=== PATIENT | female | born 1980 | race Caucasian/White ===

== ENCOUNTER 2019-11-17 02:59 | Emergency (ER) | payer SELFPAY ==
--- NOTE | 2019-11-17 03:17 | EDM.PDOC ---
ED HPI GENERAL MEDICAL PROBLEM - General Chief Complaint: Respiratory Problem Stated Complaint: SOB Time Seen by Provider: 11/17/19 03:08 Source of Information: Reports: Patient History Limitations: Reports: No Limitations - History of Present Illness INITIAL COMMENTS - FREE TEXT/NARRATIVE: Patient is a 39-year-old female who is complaining of having a nonproductive cough that is been going on for several months. Symptoms started when she was still living in [place] this last August. Cough is occasionally productive of a brownish bloody sputum. She is states occasionally she is having fever and shaking chills though none recently. Patient is coughing so severely that is keeping her up at night. She is a cigarette smoker. She has not traveled out of state for the past 3 months. She is not around anybody who is been traveling recently. She denies any nausea or vomiting or diarrhea. She has no dysuria or hematuria. She has no swelling to her ankles or calfs. Patient has had bronchitis previously. Onset: Unknown/Unsure Duration: Waxing/Waning Location: Reports: Chest Quality: Reports: Ache Severity: Moderate Worsens with: Reports: Breathing Associated Symptoms: Reports: cough w sputum, Fever/Chills. Denies: Nausea/ Vomiting, Shortness of Breath throat/chest Pain Score (Numeric/FACES): 6 - Related Data Allergies Allergy/AdvReac Type Severity Reaction Status Date / Time amoxicillin Allergy Other Verified 11/17/19 03:10 cefaclor [From Ceclor] Allergy Other Verified 11/17/19 03:10 Penicillins Allergy Other Verified 11/17/19 03:10 prochlorperazine Allergy Itching Verified 11/17/19 03:10 [From Compazine] Home Meds: Home Meds . [No Known Home Meds] 11/17/19 [History] ED ROS GENERAL - Review of Systems Review Of Systems: Comprehensive ROS is negative, except as noted in HPI. ED EXAM, GENERAL - Physical Exam Exam: See Below Exam Limited By: No Limitations General Appearance: Alert, No Apparent Distress Head: Atraumatic Neck: Normal Inspection, Supple Respiratory/Chest: No Respiratory Distress, Lungs Clear, Normal Breath Sounds, No Accessory Muscle Use. No: Respiratory Distress Cardiovascular: Regular Rate, Rhythm, No Edema Extremities: Normal Inspection, No Pedal Edema Neurological: Alert, Oriented Psychiatric: Normal Affect Skin Exam: Warm, Dry Course - Vital Signs Text/Narrative:: I have started the patient on prednisone and Zithromax. I will give her a prescription for Phenergan with codeine. I am starting her on albuterol inhaler. Patient has agreed to stop smoking cigarettes. She will return to emergency department symptoms are worse. Follow-up with her PCP if not improving. I do not feel that she is at risk for having coronavirus. Last Recorded V/S: Last Vital Signs Temp 36.5 C 11/17/19 03:10 Pulse 98 11/17/19 03:10 Resp 18 11/17/19 03:10 BP 149/100 H 11/17/19 03:10 Pulse Ox 99 11/17/19 03:10 Departure - Departure Time of Disposition: 03:38 Disposition: Home, Self-Care 01 Condition: Good Clinical Impression: Acute bronchitis - Discharge Information Instructions: Acute Bronchitis, Adult, [id number] Forms: ED Department Discharge Additional Instructions: The following information is given to patients seen in the emergency department who are being discharged to home. This information is to outline your options for follow-up care. We provide all patients seen in our emergency department with a follow-up referral. The need for follow-up, as well as the timing and circumstances, are variable depending upon the specifics of your emergency department visit. If you don't have a primary care physician on staff, we will provide you with a referral. We always advise you to contact your personal physician following an emergency department visit to inform them of the circumstance of the visit and for follow-up with them and/or the need for any referrals to a consulting specialist. The emergency department will also refer you to a specialist when appropriate. This referral assures that you have the opportunity for follow-up care with a specialist. All of these measure are taken in an effort to provide you with optimal care, which includes your follow-up. Under all circumstances we always encourage you to contact your private physician who remains a resource for coordinating your care. When calling for follow-up care, please make the office aware that this follow-up is from your recent emergency room visit. If for any reason you are refused follow-up, please contact the [facility] Emergency Department at and asked to speak to the emergency department charge nurse. Care Plan Goals: Quit smoking cigarettes. Medicines as prescribed. Return to ER if worse. Follow-up with PCP if not improving. Sepsis Event Note - Focused Exam Vital Signs: Vital Signs Temp Pulse Resp BP Pulse Ox 11/17/19 03:10 36.5 C 98 18 149/100 H 99 Date Exam was Performed: 11/17/19 Time Exam was Performed: 03:31
[2019-11-17] MEDS ORDERED: Albuterol 8 GM Inhaler INH ONE (03:30)
== END 2019-11-17 03:51 | disposition home or self-care (01) ==
LOC: MW.ED 02:59
DX: J20.9 Acute bronchitis, unspecified (principal); Z88.1 Allergy status to other antibiotic agents; Z88.0 Allergy status to penicillin; Z91.048 Other nonmedicinal substance allergy status
CPT/HCPCS: 99284; A9270; 99283

== ENCOUNTER 2020-09-13 20:33 | Emergency (ER) | payer SELFPAY ==
[2020-09-13] MEDS ORDERED: Ondansetron 4 MG Tab.DIS PO ONE (20:54)
[2020-09-13] MEDS ORDERED: Sodium Chloride 0.9% 10 ML Syringe FLUSH PRN (20:54)
[2020-09-13] MEDS ORDERED: Sodium Chloride 0.9% 2.5 ML Syringe FLUSH PRN (20:54)
[2020-09-13] MEDS ORDERED: MVI, Adult with Vitamin K 10 ML, Thiamine 200 MG, Chromium/Copper/Mang/Selen/Zn 1 ML in... IV SCH ×4 (21:00)
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
[2020-09-13] MEDS ORDERED: MVI, Adult with Vitamin K 10 ML, Thiamine 100 MG, Folic Acid 1 MG in Sodium Chloride 0.... IV ONE ×4 (21:33)
--- NOTE | 2020-09-13 21:36 | CR ---
INDICATION: Pain of the chest wall with contusion in the right upper lateral and posterior chest. COMPARISON: None available. FINDINGS: A portable erect film of the chest is obtained at 2115 hours The lungs are clear. No focal or diffuse infiltrates are present. The heart is normal in size. The mediastinum is normal in appearance. The osseous structures are normal in appearance for the patient`s age. IMPRESSION: Normal portable chest. Dictated by Russell Cm MD @ Sep 13 2020 9:34PM Signed by Dr. Russell Cm @ Sep 13 2020 9:35PM
[2020-09-13 22:03] LABS: HEMOGLOBIN A1C 4.8 %
[2020-09-13 22:26] LABS: BLOOD UREA NITROGEN,BUN 9 mg/dL (7.0-18.0); CARBON DIOXIDE,CO2 16.2 mmol/L (21.0-32.0); CHLORIDE,CL 102 mmol/L (98-107); GLUCOSE RANDOM 51 mg/dL (74-106); LIPASE 164 U/L (73-393); POTASSIUM,K 3.8 mmol/L (3.5-5.1); SODIUM,NA 143 mmol/L (136-145)
[2020-09-14] MEDS ORDERED: Ondansetron 4 MG/2 ML SDV IVPUSH ONE (00:07)
[2020-09-14] MEDS ORDERED: Pantoprazole 40 MG in Sodium Chloride 0.9% 10 ML IV ONE (00:46)
== END 2020-09-14 01:45 | disposition home or self-care (01) ==
LOC: MW.ED 20:33
DX: S20.211A Contusion of right front wall of thorax, initial encounter (principal); F10.129 Alcohol abuse with intoxication, unspecified; E16.2 Hypoglycemia, unspecified; J45.909 Unspecified asthma, uncomplicated; Z88.1 Allergy status to other antibiotic agents; Z88.0 Allergy status to penicillin; Z88.8 Allergy status to other drugs, medicaments and biological substances; Y90.8 Blood alcohol level of 240 mg/100 ml or more; W19.XXXA Unspecified fall, initial encounter
CPT/HCPCS: 36415; 71045; 80053; 80179; 82962; 83036; 83690; 84703; 85025; 96365; 96366; 96375; 99285; A9270; C9113; J2405; J3411; J7030; 99283

== ENCOUNTER 2020-09-21 07:06 | Emergency (ER) | payer SELFPAY ==
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
== END 2020-09-21 07:45 ==
LOC: MW.ED 07:06
DX: F10.120 Alcohol abuse with intoxication, uncomplicated (principal); J45.909 Unspecified asthma, uncomplicated; Z88.0 Allergy status to penicillin
CPT/HCPCS: 99282; 99283

== ENCOUNTER 2021-01-29 21:33 | Emergency (ER) | payer SELFPAY ==
[2021-01-29] MEDS ORDERED: Sodium Chloride 0.9% 2.5 ML Syringe FLUSH PRN (22:07)
[2021-01-29] MEDS ORDERED: Sodium Chloride 0.9% 10 ML Syringe FLUSH PRN (22:07)
[2021-01-29] MEDS ORDERED: Ketorolac 15 MG/ML SDV IVPUSH ONE (22:07)
[2021-01-29] MEDS ORDERED: Ondansetron 4 MG/2 ML SDV IVPUSH ONE (22:07)
[2021-01-29] MEDS ORDERED: Sodium Chloride 0.9% 1,000 ML IV ONE (22:07)
[2021-01-29 22:45] LABS: BLOOD UREA NITROGEN,BUN 7 mg/dL (7.0-18.0); CARBON DIOXIDE,CO2 22.6 mmol/L (21.0-32.0); CHLORIDE,CL 99 mmol/L (98-107); GLUCOSE RANDOM 84 mg/dL (74-106); POTASSIUM,K 3.5 mmol/L (3.5-5.1); SODIUM,NA 141 mmol/L (136-145)
--- NOTE | 2021-01-29 23:35 | CR ---
For Patients: As a result of the Century Cures Act, medical imaging exams and procedure reports are released immediately into your electronic medical record. You may view this report before your referring provider. If you have questions, please contact your health care provider. Indication: Cough Technique: Chest 2 views Comparison: Chest x-ray 09/13/2020 Findings/Impression: Cardiovascular and mediastinum: Heart size and vasculature are normal in caliber and appearance. Mediastinum is within normal limits. Lungs and pleural spaces: Lungs are clear. No sign of infiltrate or mass. No sign of pleural effusion. No pneumothorax. Bones and soft tissues: No significant findings. Dictated by Klaus Anand MD @ 01/29/2021 11:33:[address] Klaus Anand @ Jan 29 2021 11:33PM
[2021-01-30] MEDS ORDERED: HYDROmorphone 1 MG/ML Syringe IVPUSH ONE (01:24)
[2021-01-30] MEDS ORDERED: Ondansetron 4 MG/2 ML SDV IVPUSH ONE (01:25)
--- NOTE | 2021-01-30 01:33 | US ---
INDICATION: Abnormal liver enzymes. LIMITED ABDOMEN ULTRASOUND Technique: Multiple sonographic images were performed over the right upper quadrant. Findings: The liver has diffusely increased echogenicity consistent with fatty infiltration. Liver size is in the upper range of normal. The gallbladder shows no stones, wall thickening, or pericholecystic fluid. There was a positive sonographic Tolentino`s sign, according to the technologist. No intrahepatic biliary dilatation is seen and the common bile duct is normal in caliber, measuring 4 mm in diameter. The pancreas is poorly visualized. The visualized portions of the right kidney are unremarkable. IMPRESSION: 1. Positive sonographic Tolentino`s sign without other sonographic evidence of cholecystitis. No cholelithiasis is seen. 2. Fatty infiltration of the liver. MICHELINE BAUTISTA MD [facility] Dictated by Beto Bautista MD @ 01/30/2021 1:32:22 AM Dictated by: Beto Bautista MD @ 01/30/2021 01:32:42 (Electronically Signed)
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
--- NOTE | 2021-01-31 03:38 | PCM.EKG ---
#1 Interpretation EKG Interpretation Comments: EKG: As interpreted by ER physician: Alfie: Nonspecific ST-T wave abnormalities Normal axis No evidence of ST elevation RI Normal sinus rhythm heart rate of 82
== END 2021-01-30 03:06 | disposition home or self-care (01) ==
LOC: MW.ED 21:33
DX: R10.11 Right upper quadrant pain (principal); R07.9 Chest pain, unspecified; R79.89 Other specified abnormal findings of blood chemistry; E11.9 Type 2 diabetes mellitus without complications; I10 Essential (primary) hypertension; J45.909 Unspecified asthma, uncomplicated; Z88.0 Allergy status to penicillin; Z88.1 Allergy status to other antibiotic agents; Z88.8 Allergy status to other drugs, medicaments and biological substances; Z79.899 Other long term (current) drug therapy
CPT/HCPCS: 36415; 71046; 76705; 80053; 80074; 81001; 81025; 83690; 83880; 84484; 85025; 93005; 96374; 96375; 96376; 99285; J1170; J1885; J2405; J7030

== ENCOUNTER 2021-08-27 11:58 | Emergency (ER) | payer SELFPAY ==
[2021-08-27] MEDS ORDERED: Sodium Chloride 0.9% 1,000 ML IV ONE (13:58)
[2021-08-27] MEDS ORDERED: Ondansetron 4 MG/2 ML SDV IVPUSH ONE ×2 (13:58→16:40)
[2021-08-27] MEDS ORDERED: fentaNYL 50 MCG/ML SDV IVPUSH ONE ×2 (13:59→16:40)
[2021-08-27 14:41] LABS: CORONAVIRUS COVID-19 NAA NEGATIVE (NEGATIVE); INFLUENZA A NAA NEGATIVE (NEGATIVE); INFLUENZA B NAA NEGATIVE (NEGATIVE)
[2021-08-27 15:11] LABS: BLOOD UREA NITROGEN,BUN 7 mg/dL (7.0-18.0); CARBON DIOXIDE,CO2 26.9 mmol/L (21.0-32.0); CHLORIDE,CL 96 mmol/L (98-107); GLUCOSE RANDOM 70 mg/dL (74-106); LIPASE 100 U/L (73-393); POTASSIUM,K 3.7 mmol/L (3.5-5.1); SODIUM,NA 139 mmol/L (136-145)
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
--- NOTE | 2021-08-27 15:50 | CT ---
INDICATION: Abdominal pain. TECHNIQUE: CT abdomen and pelvis without contrast. COMPARISON: None. FINDINGS: Lower chest: Unremarkable. Liver: Diffuse fatty infiltration. Gallbladder and bile ducts: High attenuation material within the gallbladder which is normal in caliber. No biliary dilatation. Pancreas: Unremarkable. No mass or inflammation. Spleen: Normal in size. No masses. Adrenal glands: Normal in size. No nodules. Kidneys: Normal in size. No suspicious masses, stones, or hydronephrosis. GI tract: Unremarkable. Normal in caliber. No sign of mass or inflammation. Normal appendix. Vasculature: Unremarkable. Lymph nodes: No lymphadenopathy. Abdominal wall/Omentum/Peritoneum: Unremarkable. No sign of mass or infiltration. No free air or significant free fluid. Pelvis: Unremarkable. No pelvic masses. Bones: Unremarkable for age. IMPRESSION: No acute or specific finding to explain abdominal pain. Please note that all CT scans at this facility use dose modulation, iterative reconstruction, and/or weight-based dosing when appropriate to reduce radiation dose to as low as reasonably achievable. Dictated by Daniele Umanzor MD @ 08/27/2021 3:49:10 PM (Electronically Signed)
== END 2021-08-27 17:22 | disposition home or self-care (01) ==
LOC: MW.ED 11:58
DX: K70.10 Alcoholic hepatitis without ascites (principal); E56.9 Vitamin deficiency, unspecified; Z88.0 Allergy status to penicillin; Z88.1 Allergy status to other antibiotic agents; Z88.8 Allergy status to other drugs, medicaments and biological substances; J45.909 Unspecified asthma, uncomplicated; Z72.0 Tobacco use; Z20.822 Contact with and (suspected) exposure to COVID-19
CPT/HCPCS: 0240U; 36415; 74176; 80053; 81001; 81025; 82150; 83690; 84443; 85025; 96374; 96375; 96376; 99284; J2405; J3010; J7030

== ENCOUNTER 2021-10-03 16:09 | Observation (INO) | payer MEDICAID ==
[2021-10-03] MEDS ORDERED: Ondansetron 4 MG/2 ML SDV IVPUSH ONE (16:39)
[2021-10-03] MEDS ORDERED: Sodium Chloride 0.9% 1,000 ML IV ONE (16:39)
[2021-10-03 17:40] LABS: BLOOD UREA NITROGEN,BUN 14 mg/dL (7.0-18.0); CARBON DIOXIDE,CO2 28.4 mmol/L (21.0-32.0); CHLORIDE,CL 79 mmol/L (98-107); GLUCOSE RANDOM 74 mg/dL (74-106); LIPASE 430 U/L (73-393); SODIUM,NA 129 mmol/L (136-145)
[2021-10-03 17:46] LABS: POTASSIUM,K 2.1 mmol/L (3.5-5.1)
[2021-10-03] MEDS ORDERED: Magnesium Sulfate/Water 2 GM in Premix Bag 1 BAG IV ONE (17:47)
[2021-10-03] MEDS ORDERED: Potassium Chloride Riders 40 MEQ in Premix Bag 1 BAG IV ONE (17:47)
[2021-10-03] MEDS ORDERED: Iopamidol 612 MG/ML 100 ML Bottle IVPUSH ONE (18:02)
[2021-10-03] MEDS ORDERED: Morphine 4 MG/ML VIAL IVPUSH ONE (18:22)
[2021-10-03 19:09] LABS: CORONAVIRUS COVID-19 NAA NEGATIVE (NEGATIVE); INFLUENZA A NAA NEGATIVE (NEGATIVE); INFLUENZA B NAA NEGATIVE (NEGATIVE)
[2021-10-03] MEDS ORDERED: Morphine 2 MG/ML SYRINGE IVPUSH ONE (20:11)
[2021-10-03] MEDS ORDERED: Ondansetron 4 MG/2 ML SDV IVPUSH PRN (21:37)
[2021-10-03] MEDS ORDERED: Morphine 2 MG/ML SYRINGE IVPUSH PRN (21:38)
[2021-10-03] MEDS ORDERED: Pantoprazole 40 MG in Sodium Chloride 0.9% 10 ML IVPUSH SCH (21:45)
[2021-10-03] MEDS ORDERED: Pantoprazole 40 MG in Sodium Chloride 0.9% 10 ML IVPUSH ONE (21:45)
[2021-10-04] MEDS ORDERED: POTASSIUM CHLORIDE IV ONE ×2
[2021-10-04] MEDS ORDERED: LACTATED RINGERS IV SCH ×2
[2021-10-04] MEDS ORDERED: LACTATED RINGERS IV ONE ×2
[2021-10-04] MEDS ORDERED: POTASSIUM CHLORIDE IV SCH ×2
[2021-10-04] MEDS ORDERED: Potassium Chloride 10% 20 MEQ/15 ML Soln 30 ML UD Cup PO ONE (01:56)
[2021-10-04] MEDS: Morphine 2 MG/ML SYRINGE IVPUSH PRN ×5 (02:06→18:05)
[2021-10-04] MEDS: Lactated Ringers 1,000 ML IV SCH ×2 (04:18→19:32)
[2021-10-04 07:24] LABS: BLOOD UREA NITROGEN,BUN 8 mg/dL (7.0-18.0); CARBON DIOXIDE,CO2 30.2 mmol/L (21.0-32.0); CHLORIDE,CL 91 mmol/L (98-107); GLUCOSE RANDOM 87 mg/dL (74-106); POTASSIUM,K 3.1 mmol/L (3.5-5.1); SODIUM,NA 133 mmol/L (136-145)
[2021-10-04] MEDS ORDERED: Potassium Chloride 20 MEQ Tab.ER PO ONE (08:10)
[2021-10-04] MEDS ORDERED: Potassium Phosphates 30 MMOLE in Sodium Chloride 0.9% 500 ML IV ONE (08:30)
[2021-10-04] MEDS: Pantoprazole 40 MG in Sodium Chloride 0.9% 10 ML IVPUSH SCH (08:52)
[2021-10-04] MEDS: Thiamine 100 MG Tab PO SCH (10:56)
[2021-10-04] MEDS: Folic Acid 1 MG Tab PO SCH (10:56)
[2021-10-04] MEDS: Gabapentin 100 MG Cap PO SCH ×2 (10:56→21:12)
[2021-10-04] MEDS: oxyCODONE 5 MG Tab PO PRN ×2 (16:24→21:11)
[2021-10-05] MEDS: Lactated Ringers 1,000 ML IV SCH ×2 (02:36→10:37)
[2021-10-05] MEDS: oxyCODONE 5 MG Tab PO PRN ×5 (02:37→21:22)
[2021-10-05] MEDS: Morphine 2 MG/ML SYRINGE IVPUSH PRN ×2 (06:29→10:36)
[2021-10-05] MEDS: Folic Acid 1 MG Tab PO SCH (08:10)
[2021-10-05] MEDS: Pantoprazole 40 MG in Sodium Chloride 0.9% 10 ML IVPUSH SCH (08:10)
[2021-10-05] MEDS: Thiamine 100 MG Tab PO SCH (08:10)
[2021-10-05] MEDS: Gabapentin 100 MG Cap PO SCH ×3 (08:10→21:22)
[2021-10-05 09:55] LABS: BLOOD UREA NITROGEN,BUN 4 mg/dL (7.0-18.0); CARBON DIOXIDE,CO2 30.4 mmol/L (21.0-32.0); CHLORIDE,CL 96 mmol/L (98-107); GLUCOSE RANDOM 94 mg/dL (74-106); POTASSIUM,K 3.3 mmol/L (3.5-5.1); SODIUM,NA 137 mmol/L (136-145)
[2021-10-05] MEDS ORDERED: Potassium Chloride 20 MEQ Tab.ER PO ONE (12:00)
[2021-10-05] MEDS ORDERED: Magnesium Oxide 400 MG Tab PO ONE (12:00)
[2021-10-05] MEDS ORDERED: Gabapentin 100 MG Cap PO SCH (21:00)
[2021-10-06] MEDS: oxyCODONE 5 MG Tab PO PRN ×6 (01:36→23:16)
[2021-10-06 06:39] LABS: BLOOD UREA NITROGEN,BUN 2 mg/dL (7.0-18.0); CARBON DIOXIDE,CO2 28.1 mmol/L (21.0-32.0); CHLORIDE,CL 97 mmol/L (98-107); GLUCOSE RANDOM 94 mg/dL (74-106); POTASSIUM,K 3.5 mmol/L (3.5-5.1); SODIUM,NA 135 mmol/L (136-145)
[2021-10-06] MEDS: Folic Acid 1 MG Tab PO SCH (08:51)
[2021-10-06] MEDS: Gabapentin 100 MG Cap PO SCH ×2 (08:51→20:03)
[2021-10-06] MEDS: Thiamine 100 MG Tab PO SCH (08:51)
[2021-10-06] MEDS: Pantoprazole 40 MG in Sodium Chloride 0.9% 10 ML IVPUSH SCH (08:52)
[2021-10-06] MEDS ORDERED: Magnesium Oxide 400 MG Tab PO ONE (10:48)
[2021-10-06] MEDS ORDERED: Polyethylene Glycol 3350 Powder 17 GM Packet PO ONE (15:57)
[2021-10-07] MEDS: oxyCODONE 5 MG Tab PO PRN ×2 (04:04→08:20)
[2021-10-07 07:12] LABS: BLOOD UREA NITROGEN,BUN 1 mg/dL (7.0-18.0); CARBON DIOXIDE,CO2 26.9 mmol/L (21.0-32.0); CHLORIDE,CL 98 mmol/L (98-107); GLUCOSE RANDOM 94 mg/dL (74-106); POTASSIUM,K 3.3 mmol/L (3.5-5.1); SODIUM,NA 137 mmol/L (136-145)
[2021-10-07] MEDS ORDERED: Potassium Chloride 20 MEQ Tab.ER PO ONE (08:00)
[2021-10-07] MEDS ORDERED: Magnesium Sulfate/Water 2 GM in Premix Bag 1 BAG IV ONE (08:00)
[2021-10-07] MEDS: Pantoprazole 40 MG in Sodium Chloride 0.9% 10 ML IVPUSH SCH (08:11)
[2021-10-07] MEDS: Thiamine 100 MG Tab PO SCH (08:14)
[2021-10-07] MEDS: Folic Acid 1 MG Tab PO SCH (08:14)
[2021-10-07] MEDS: Gabapentin 100 MG Cap PO SCH (08:14)
[2021-10-07] MEDS ORDERED: Potassium Chloride 20 MEQ Tab.ER ONE (08:24)
== END 2021-10-07 14:00 | disposition home or self-care (01) ==
LOC: MW.ED 16:09 → MW.MS 19:33 → INTOOBSV 10-05 12:00 → OBSVTOIN 10-05 12:00
PROVIDERS: ADMIT Student in an Organized Health Care Education/Training Program; ATTEND Student in an Organized Health Care Education/Training Program
DX: E87.1 Hypo-osmolality and hyponatremia (principal); E83.42 Hypomagnesemia; K70.10 Alcoholic hepatitis without ascites; E87.6 Hypokalemia; G62.9 Polyneuropathy, unspecified; F41.9 Anxiety disorder, unspecified; F32.A Depression, unspecified; F10.10 Alcohol abuse, uncomplicated; J45.909 Unspecified asthma, uncomplicated; F17.210 Nicotine dependence, cigarettes, uncomplicated; E83.39 Other disorders of phosphorus metabolism; Z20.822 Contact with and (suspected) exposure to COVID-19; Z88.1 Allergy status to other antibiotic agents; Z88.8 Allergy status to other drugs, medicaments and biological substances; Z88.0 Allergy status to penicillin; Z79.899 Other long term (current) drug therapy
CPT/HCPCS: 0240U; 36415; 70450; 74177; 80048; 80053; 80307; 82525; 82607; 82746; 83605; 83690; 83735; 84075; 84100; 84450; 84460; 84703; 85025; 85610; 85730; 86140; 93005; 96365; 96366; 96367; 96368; 96375; 96376; 99285; A9270; C9113; G0378; J2270; J2405; J3475; J3480; J7030; J7040; J7120; Q9967; 93010; 99282

== ENCOUNTER 2021-10-11 14:32 | Emergency (ER) | payer MEDICAID ==
[2021-10-11] MEDS ORDERED: Sodium Chloride 0.9% 1,000 ML IV ONE (14:42)
[2021-10-11] MEDS ORDERED: Morphine 4 MG/ML VIAL IVPUSH ONE (15:13)
[2021-10-11] MEDS ORDERED: Ondansetron 4 MG/2 ML SDV IVPUSH ONE (15:13)
[2021-10-11] MEDS ORDERED: Nitrofurantoin Monohydrate/Macrocrystalline 100 MG Cap PO ONE (16:47)
[2021-10-11 16:54] LABS: BLOOD UREA NITROGEN,BUN 5 mg/dL (7.0-18.0); CARBON DIOXIDE,CO2 23.4 mmol/L (21.0-32.0); CHLORIDE,CL 97 mmol/L (98-107); GLUCOSE RANDOM 73 mg/dL (74-106); LIPASE 131 U/L (73-393); POTASSIUM,K 3.1 mmol/L (3.5-5.1); SODIUM,NA 137 mmol/L (136-145)
[2021-10-11] MEDS ORDERED: Potassium Chloride 20 MEQ Tab.ER PO ONE (17:01)
[2021-10-11] MEDS ORDERED: Magnesium Sulfate/Water 2 GM in Premix Bag 1 BAG IV ONE (17:07)
[2021-10-11] MEDS ORDERED: oxyCODONE 5 MG Tab PO ONE (18:43)
== END 2021-10-11 21:01 | disposition home or self-care (01) ==
LOC: MW.ED 14:32
DX: N30.00 Acute cystitis without hematuria (principal); E16.2 Hypoglycemia, unspecified; E87.6 Hypokalemia; E83.42 Hypomagnesemia; G62.9 Polyneuropathy, unspecified; Z88.0 Allergy status to penicillin; Z88.1 Allergy status to other antibiotic agents
CPT/HCPCS: 36415; 80053; 80305; 80307; 81001; 81025; 83690; 83735; 85025; 96365; 96366; 96375; 99284; A9270; J2270; J2405; J3475; J7030; 99283

== ENCOUNTER 2021-10-21 22:12 | Observation (INO) | payer MEDICAID ==
[2021-10-21] MEDS ORDERED: Sodium Chloride 0.9% 1,000 ML IV ONE (22:40)
[2021-10-21] MEDS ORDERED: Ondansetron 4 MG/2 ML SDV IVPUSH ONE (22:40)
[2021-10-21] MEDS ORDERED: Famotidine 20 MG/2 ML SDV IVPUSH ONE (22:40)
[2021-10-21] MEDS ORDERED: Alum Hydro/Mag Hydro/Simeth XS 15 ML, Lidocaine 2% 5 ML PO ONE ×2 (22:42)
[2021-10-21 23:23] LABS: BLOOD UREA NITROGEN,BUN 4 mg/dL (7.0-18.0); CHLORIDE,CL 94 mmol/L (98-107); GLUCOSE RANDOM 80 mg/dL (74-106); LIPASE 233 U/L (73-393); POTASSIUM,K 2.6 mmol/L (3.5-5.1); SODIUM,NA 140 mmol/L (136-145)
[2021-10-21] MEDS ORDERED: Potassium Chloride Riders 40 MEQ in Premix Bag 1 BAG IV ONE (23:25)
[2021-10-21] MEDS ORDERED: Magnesium Sulfate/Water 2 GM in Premix Bag 1 BAG IV ONE (23:25)
[2021-10-21 23:43] LABS: CORONAVIRUS COVID-19 NAA NEGATIVE (NEGATIVE); INFLUENZA A NAA NEGATIVE (NEGATIVE); INFLUENZA B NAA NEGATIVE (NEGATIVE)
[2021-10-22] MEDS ORDERED: Sodium Chloride 0.9% 1,000 ML IV ONE (00:03)
[2021-10-22] MEDS ORDERED: Iopamidol 755 MG/ML 500 ML Multipack Bottle IVPUSH STA (00:33)
[2021-10-22] MEDS ORDERED: metroNIDAZOLE/Normal Saline 500 MG in Premix Bag 1 BAG IV ONE (00:58)
[2021-10-22] MEDS ORDERED: Ciprofloxacin in D5W 400 MG in Premix Bag 1 BAG IV SCH ×4 (01:00→13:00)
[2021-10-22] MEDS ORDERED: Sodium Chloride 0.9% with KCl 1,000 ML IV SCH (01:15)
[2021-10-22] MEDS ORDERED: Pantoprazole 40 MG in Sodium Chloride 0.9% 10 ML IVPUSH SCH (01:30)
[2021-10-22] MEDS: Ondansetron 4 MG/2 ML SDV IVPUSH PRN ×3 (01:47→22:27)
[2021-10-22] MEDS: Gabapentin 100 MG Cap PO SCH ×3 (05:38→21:14)
[2021-10-22] MEDS ORDERED: metroNIDAZOLE/Normal Saline 500 MG in Premix Bag 1 BAG IV SCH ×3 (07:00→09:00)
[2021-10-22] MEDS ORDERED: Sodium Chloride 0.9% 2.5 ML Syringe FLUSH PRN (08:00)
[2021-10-22] MEDS ORDERED: Sodium Chloride 0.9% 10 ML Syringe FLUSH PRN (08:00)
[2021-10-22] MEDS ORDERED: Lactated Ringers 1,000 ML IV SCH (08:00)
[2021-10-22] MEDS: Acetaminophen 325 MG Tab PO PRN (08:28)
[2021-10-22] MEDS ORDERED: Thiamine 100 MG in Sodium Chloride 0.9% 100 ML IV SCH (09:00)
[2021-10-22 09:40] LABS: BLOOD UREA NITROGEN,BUN 4 mg/dL (7.0-18.0); CARBON DIOXIDE,CO2 17.1 mmol/L (21.0-32.0); CHLORIDE,CL 102 mmol/L (98-107); GLUCOSE RANDOM 68 mg/dL (74-106); POTASSIUM,K 3.4 mmol/L (3.5-5.1); SODIUM,NA 139 mmol/L (136-145)
[2021-10-22] MEDS: Folic Acid 50 MG/10 ML MDV IV SCH ×2 (10:02→11:16)
[2021-10-22] MEDS: Thiamine 200 MG/2 ML MDV IVPUSH SCH (10:03)
[2021-10-22] MEDS: metroNIDAZOLE/Normal Saline 500 MG in Premix Bag 1 BAG IV SCH ×2 (10:03→16:01)
[2021-10-22] MEDS: Dextrose 5 %-0.2 % NaCl 1,000 ML IV SCH ×2 (10:56→22:21)
[2021-10-22] MEDS: Phosphorus #1 250 MG Tab PO SCH ×3 (12:50→23:43)
[2021-10-22] MEDS: Pantoprazole 40 MG in Sodium Chloride 0.9% 10 ML IVPUSH SCH ×2 (12:51→21:16)
[2021-10-22] MEDS ORDERED: Potassium Chloride 10 MEQ Tab.ER PO ONE (15:14)
[2021-10-22] MEDS: Vancomycin 125 MG Cap PO SCH ×3 (15:58→23:43)
[2021-10-23] MEDS: Acetaminophen 325 MG Tab PO PRN (04:39)
[2021-10-23] MEDS: Phosphorus #1 250 MG Tab PO SCH ×2 (05:00→21:52)
[2021-10-23] MEDS: Vancomycin 125 MG Cap PO SCH ×4 (05:00→23:06)
[2021-10-23] MEDS: Gabapentin 100 MG Cap PO SCH ×3 (05:00→21:52)
[2021-10-23 07:34] LABS: BLOOD UREA NITROGEN,BUN 1 mg/dL (7.0-18.0); CARBON DIOXIDE,CO2 23.5 mmol/L (21.0-32.0); CHLORIDE,CL 101 mmol/L (98-107); GLUCOSE RANDOM 110 mg/dL (74-106); POTASSIUM,K 2.6 mmol/L (3.5-5.1); SODIUM,NA 138 mmol/L (136-145)
[2021-10-23] MEDS: Folic Acid 50 MG/10 ML MDV IV SCH (08:35)
[2021-10-23] MEDS: Thiamine 200 MG/2 ML MDV IVPUSH SCH (08:38)
[2021-10-23] MEDS ORDERED: Magnesium Sulfate/Water 2 GM/50 ML Premix Bag IV ONE (09:57)
[2021-10-23] MEDS ORDERED: Sodium Chloride 0.9% 1,000 ML IV ONE (10:00)
[2021-10-23] MEDS ORDERED: Potassium Chloride 20 MEQ Tab.ER PO ONE ×2 (10:00→21:33)
[2021-10-23] MEDS ORDERED: Magnesium Sulfate/Water 2 GM in Premix Bag 1 BAG IV ONE (10:00)
[2021-10-23] MEDS ORDERED: Sodium Chloride 0.9% with KCl 1,000 ML IV SCH (10:15)
[2021-10-23] MEDS: Famotidine 20 MG Tab PO SCH (10:25)
[2021-10-23] MEDS: Ondansetron 4 MG/2 ML SDV IVPUSH PRN (10:26)
[2021-10-23] MEDS: oxyCODONE 5 MG Tab PO PRN ×2 (12:19→20:16)
[2021-10-23 17:26] LABS: CARBON DIOXIDE,CO2 24.4 mmol/L (21.0-32.0); CHLORIDE,CL 103 mmol/L (98-107); GLUCOSE RANDOM 116 mg/dL (74-106); POTASSIUM,K 3.5 mmol/L (3.5-5.1); SODIUM,NA 140 mmol/L (136-145)
[2021-10-23 17:31] LABS: BLOOD UREA NITROGEN,BUN 1 mg/dL (7.0-18.0)
[2021-10-23] MEDS: Dextrose 5 %-0.2 % NaCl 1,000 ML IV SCH ×3 (22:53→22:54)
[2021-10-24] MEDS: Dextrose 5 %-0.2 % NaCl 1,000 ML IV SCH (02:57)
[2021-10-24] MEDS: oxyCODONE 5 MG Tab PO PRN (04:12)
[2021-10-24] MEDS: Vancomycin 125 MG Cap PO SCH ×3 (05:21→17:54)
[2021-10-24] MEDS: Gabapentin 100 MG Cap PO SCH ×3 (05:21→21:51)
[2021-10-24 06:50] LABS: CARBON DIOXIDE,CO2 25.4 mmol/L (21.0-32.0); CHLORIDE,CL 104 mmol/L (98-107); GLUCOSE RANDOM 111 mg/dL (74-106); POTASSIUM,K 3.1 mmol/L (3.5-5.1); SODIUM,NA 140 mmol/L (136-145)
[2021-10-24 06:59] LABS: BLOOD UREA NITROGEN,BUN 0 mg/dL (7.0-18.0)
[2021-10-24] MEDS ORDERED: Magnesium Sulfate/Water 4 GM in Premix Bag 1 BAG IV ONE (07:51)
[2021-10-24] MEDS ORDERED: Potassium Chloride 20 MEQ Tab.ER PO ONE ×3 (07:51→22:00)
[2021-10-24] MEDS: Famotidine 20 MG Tab PO SCH (08:43)
[2021-10-24] MEDS: Phosphorus #1 250 MG Tab PO SCH ×2 (08:44→21:51)
[2021-10-24] MEDS: Folic Acid 50 MG/10 ML MDV IV SCH (08:44)
[2021-10-24] MEDS: Thiamine 200 MG/2 ML MDV IVPUSH SCH (08:45)
[2021-10-24] MEDS: Acetaminophen 325 MG Tab PO PRN (08:48)
[2021-10-24] MEDS: Ondansetron 4 MG/2 ML SDV IVPUSH PRN ×2 (09:21→17:06)
[2021-10-24] MEDS: LORazepam 0.5 MG Tab PO PRN ×2 (10:24→23:15)
[2021-10-24 14:33] LABS: POTASSIUM,K 3.9 mmol/L (3.5-5.1)
[2021-10-25] MEDS: Vancomycin 125 MG Cap PO SCH ×5 (00:04→23:11)
[2021-10-25] MEDS: Gabapentin 100 MG Cap PO SCH ×2 (06:06→14:52)
[2021-10-25 07:19] LABS: BLOOD UREA NITROGEN,BUN 1 mg/dL (7.0-18.0); CARBON DIOXIDE,CO2 24.2 mmol/L (21.0-32.0); CHLORIDE,CL 103 mmol/L (98-107); GLUCOSE RANDOM 95 mg/dL (74-106); POTASSIUM,K 3.9 mmol/L (3.5-5.1); SODIUM,NA 139 mmol/L (136-145)
[2021-10-25] MEDS: oxyCODONE 5 MG Tab PO PRN ×3 (09:14→23:11)
[2021-10-25] MEDS: Phosphorus #1 250 MG Tab PO SCH ×2 (09:14→20:37)
[2021-10-25] MEDS: Famotidine 20 MG Tab PO SCH (09:14)
[2021-10-25] MEDS: Thiamine 200 MG/2 ML MDV IVPUSH SCH (09:15)
[2021-10-25] MEDS: Folic Acid 50 MG/10 ML MDV IV SCH (09:15)
[2021-10-25] MEDS: Ondansetron 4 MG/2 ML SDV IVPUSH SCH ×2 (11:49→17:36)
[2021-10-25] MEDS: LORazepam 0.5 MG Tab PO PRN (15:00)
[2021-10-25] MEDS ORDERED: Gabapentin 300 MG Cap PO SCH (21:00)
[2021-10-26] MEDS: Gabapentin 100 MG Cap PO SCH ×2 (05:20→15:06)
[2021-10-26] MEDS: Vancomycin 125 MG Cap PO SCH ×2 (05:20→12:23)
[2021-10-26] MEDS: oxyCODONE 5 MG Tab PO PRN ×2 (05:20→12:24)
[2021-10-26 07:04] LABS: BLOOD UREA NITROGEN,BUN 2 mg/dL (7.0-18.0); CARBON DIOXIDE,CO2 26.7 mmol/L (21.0-32.0); CHLORIDE,CL 103 mmol/L (98-107); GLUCOSE RANDOM 95 mg/dL (74-106); POTASSIUM,K 3.4 mmol/L (3.5-5.1); SODIUM,NA 141 mmol/L (136-145)
[2021-10-26] MEDS: Ondansetron 4 MG/2 ML SDV IVPUSH SCH (08:20)
[2021-10-26] MEDS: Famotidine 20 MG Tab PO SCH (08:24)
[2021-10-26] MEDS: Phosphorus #1 250 MG Tab PO SCH (08:24)
[2021-10-26] MEDS: Thiamine 200 MG/2 ML MDV IVPUSH SCH (08:25)
[2021-10-26] MEDS: Folic Acid 50 MG/10 ML MDV IV SCH (08:26)
[2021-10-26] MEDS ORDERED: Potassium Chloride 20 MEQ Tab.ER PO ONE (11:07)
[2021-10-26] MEDS: LORazepam 0.5 MG Tab PO PRN (15:06)
== END 2021-10-26 15:10 | disposition home or self-care (01) ==
LOC: MW.ED 22:12 → MW.MS 10-22 01:04
PROVIDERS: ADMIT Internal Medicine; ATTEND Internal Medicine
DX: A04.72 Enterocolitis due to Clostridium difficile, not specified as recurrent (principal); E87.6 Hypokalemia; E83.42 Hypomagnesemia; F41.9 Anxiety disorder, unspecified; F32.A Depression, unspecified; J45.909 Unspecified asthma, uncomplicated; G62.9 Polyneuropathy, unspecified; F10.11 Alcohol abuse, in remission; R74.01 Elevation of levels of liver transaminase levels; F17.210 Nicotine dependence, cigarettes, uncomplicated; Z88.0 Allergy status to penicillin; Z88.1 Allergy status to other antibiotic agents; Z88.8 Allergy status to other drugs, medicaments and biological substances; Z79.899 Other long term (current) drug therapy; Z98.890 Other specified postprocedural states; Z20.822 Contact with and (suspected) exposure to COVID-19
CPT/HCPCS: 0240U; 36415; 74177; 80048; 80053; 80305; 80307; 81003; 82272; 82947; 83605; 83690; 83735; 84100; 84132; 84703; 85025; 87045; 87046; 87324; 87338; 87449; 87493; 87899; 93005; 96365; 96366; 96367; 96368; 96375; 96376; 99285; A9270; C9113; G0378; J0744; J2405; J3411; J3475; J3480; J3490; J7030; J7042; Q9967

== ENCOUNTER 2022-09-08 13:50 | Inpatient (IN) | payer MEDICAID ==
[2022-09-08] MEDS ORDERED: Sodium Chloride 0.9% 10 ML Syringe FLUSH PRN (13:55)
[2022-09-08] MEDS ORDERED: Ondansetron 4 MG/2 ML SDV IVPUSH ONE (13:55)
[2022-09-08] MEDS ORDERED: Sodium Chloride 0.9% 20 ML SDV IV PRN (13:55)
[2022-09-08] MEDS ORDERED: Sodium Chloride 0.9% 2.5 ML Syringe FLUSH PRN (13:55)
[2022-09-08] MEDS ORDERED: Iopamidol 755 MG/ML 500 ML Multipack Bottle IVPUSH ONE (14:15)
[2022-09-08 15:12] LABS: BLOOD UREA NITROGEN,BUN 4 mg/dL (7.0-18.0); CARBON DIOXIDE,CO2 26.4 mmol/L (21.0-32.0); CHLORIDE,CL 102 mmol/L (98-107); GLUCOSE RANDOM 98 mg/dL (74-106); SODIUM,NA 143 mmol/L (136-145)
[2022-09-08 15:22] LABS: ESTIMATED GFR 65 mL/min (>60)
[2022-09-08] MEDS ORDERED: Magnesium Sulfate/Water 2 GM in Premix Bag 1 BAG IV ONE (15:27)
[2022-09-08] MEDS ORDERED: Potassium Chloride 10% 20 MEQ/15 ML Soln 30 ML UD Cup PO ONE (15:27)
[2022-09-08 16:26] LABS: CORONAVIRUS COVID-19 NAA NEGATIVE (NEGATIVE); INFLUENZA A NAA NEGATIVE (NEGATIVE); INFLUENZA B NAA NEGATIVE (NEGATIVE); RESPIRATORY SYNCYTIAL VIR NAA NEGATIVE (NEGATIVE)
[2022-09-08] MEDS ORDERED: Ondansetron 4 MG/2 ML SDV IVPUSH PRN (16:57)
[2022-09-08] MEDS ORDERED: Polyethylene Glycol 3350 Powder 17 GM Packet PO PRN (17:00)
[2022-09-08] MEDS ORDERED: Albuterol 0.083% 2.5 MG/3 ML Neb Soln NEB PRN (17:00)
[2022-09-08] MEDS ORDERED: Thiamine 100 MG in Sodium Chloride 0.9% 100 ML IV SCH (17:00)
[2022-09-08] MEDS ORDERED: Acetaminophen 325 MG Tab PO PRN (17:00)
[2022-09-08] MEDS: LORazepam 2 MG/ML SDV IVPUSH PRN ×2 (17:36→20:57)
[2022-09-08] MEDS: Thiamine 200 MG/2 ML MDV IVPUSH SCH (17:41)
[2022-09-08] MEDS: Folic Acid 1 MG/0.2 ML UD Syringe IV SCH (17:41)
[2022-09-08 18:45] LABS: CARBON DIOXIDE,CO2 30.9 mmol/L (21.0-32.0); POTASSIUM,K 3.4 mmol/L (3.5-5.1)
[2022-09-08] MEDS ORDERED: Gadobenate Dimeglumine 529 MG/ML 20 ML SDV IVPUSH STA (20:13)
[2022-09-08] MEDS ORDERED: Gabapentin 300 MG Cap PO SCH (21:00)
[2022-09-09 06:33] LABS: CARBON DIOXIDE,CO2 29.8 mmol/L (21.0-32.0)
[2022-09-09] MEDS ORDERED: Potassium Chloride 20 MEQ Tab.ER PO ONE (07:59)
[2022-09-09] MEDS ORDERED: Gabapentin 300 MG Cap PO SCH ×3 (09:00→13:00)
[2022-09-09] MEDS: Folic Acid 1 MG/0.2 ML UD Syringe IV SCH (09:05)
[2022-09-09] MEDS: Thiamine 200 MG/2 ML MDV IVPUSH SCH (09:06)
[2022-09-09] MEDS: LORazepam 2 MG/ML SDV IVPUSH PRN (09:07)
[2022-09-09] MEDS ORDERED: Heparin Sodium 5,000 Units/ML Vial SUBCUT SCH (10:00)
[2022-09-10] MEDS ORDERED: Potassium Chloride 10 MEQ Tab.ER PO SCH (09:00)
== END 2022-09-09 14:25 | disposition home or self-care (01) | DRG 641 ==
LOC: MW.ED 13:50 → MW.MS 15:38
PROVIDERS: ADMIT Internal Medicine; ATTEND Internal Medicine
DX: E83.42 Hypomagnesemia (principal); E87.6 Hypokalemia; R20.0 Anesthesia of skin; G62.9 Polyneuropathy, unspecified; G89.29 Other chronic pain; M24.542 Contracture, left hand; M24.541 Contracture, right hand; R47.81 Slurred speech; R20.2 Paresthesia of skin; E80.6 Other disorders of bilirubin metabolism; Z20.822 Contact with and (suspected) exposure to COVID-19; F17.210 Nicotine dependence, cigarettes, uncomplicated; J45.909 Unspecified asthma, uncomplicated; F41.9 Anxiety disorder, unspecified; F32.A Depression, unspecified; F43.10 Post-traumatic stress disorder, unspecified; F10.11 Alcohol abuse, in remission; D64.9 Anemia, unspecified; Z79.899 Other long term (current) drug therapy; Z88.1 Allergy status to other antibiotic agents; Z88.0 Allergy status to penicillin; Z88.8 Allergy status to other drugs, medicaments and biological substances; Z86.19 Personal history of other infectious and parasitic diseases
CPT/HCPCS: 0241U; 36415; 70450; 70450-26; 70496; 70496-26; 70498; 70498-26; 70553; 70553-26; 71045; 71045-26; 76705; 76705-26; 80048; 80053; 80305-QW; 80307; 81001; 82607; 83735; 84443; 84484; 84703; 85025; 85610; 85730; 93005; A9270-GY; A9577; J2060; J2405; J3411; J3475; J3490; Q9967

== ENCOUNTER 2022-11-24 11:55 | Inpatient (IN) | payer MEDICAID ==
[2022-11-24] MEDS ORDERED: Lactated Ringers 1,000 ML IV ONE ×2 (12:35→15:23)
[2022-11-24] MEDS ORDERED: Ondansetron 4 MG/2 ML SDV IVPUSH ONE (12:35)
[2022-11-24 14:20] LABS: CARBON DIOXIDE,CO2 28.7 mmol/L (21.0-32.0); POTASSIUM,K 3.7 mmol/L (3.5-5.1)
[2022-11-24 14:21] LABS: BILIRUBIN INDIRECT 1.2
[2022-11-24] MEDS ORDERED: Polyethylene Glycol 3350 Powder 17 GM Packet PO ONE (15:23)
[2022-11-24] MEDS ORDERED: Morphine 4 MG/ML Syringe IVPUSH ONE (15:24)
[2022-11-24] MEDS ORDERED: Magnesium Sulfate/Water 2 GM in Premix Bag 1 BAG IV ONE (15:25)
[2022-11-24] MEDS ORDERED: Calcium Carbonate 500 MG Tab.Chew PO ONE (15:30)
[2022-11-24] MEDS ORDERED: Lactated Ringers 1,000 ML IV SCH (16:45)
[2022-11-24] MEDS ORDERED: Iopamidol 755 MG/ML 500 ML Multipack Bottle IVPUSH STA (17:04)
[2022-11-24] MEDS: Sodium Chloride 0.9% 1,000 ML IV SCH (21:34)
[2022-11-24] MEDS: Morphine 2 MG/ML SYRINGE IVPUSH PRN (21:47)
[2022-11-24] MEDS: Gabapentin 300 MG Cap PO SCH (21:47)
[2022-11-24] MEDS ORDERED: Ondansetron 4 MG Tab.DIS PO PRN (23:10)
[2022-11-24] MEDS ORDERED: Metoclopramide 10 MG Tab PO PRN (23:10)
[2022-11-24] MEDS ORDERED: LORazepam 2 MG/ML SDV IVPUSH PRN (23:11)
[2022-11-24] MEDS: Thiamine 100 MG Tab PO SCH (23:40)
[2022-11-25] MEDS ORDERED: Magnesium Sulfate/Water 2 GM/50 ML Premix Bag IV ONE (01:46)
[2022-11-25] MEDS ORDERED: Magnesium Sulfate/Water 50 ML IV ONE (02:00)
[2022-11-25] MEDS: Sodium Chloride 0.9% 1,000 ML IV SCH ×3 (04:52→20:41)
[2022-11-25] MEDS: Morphine 2 MG/ML SYRINGE IVPUSH PRN ×5 (05:42→20:37)
[2022-11-25] MEDS: Omeprazole 20 MG Cap.CR PO SCH (09:23)
[2022-11-25] MEDS: Gabapentin 300 MG Cap PO SCH ×2 (09:23→20:47)
[2022-11-25] MEDS: Thiamine 100 MG Tab PO SCH (09:23)
[2022-11-25] MEDS: Folic Acid 1 MG Tab PO SCH (09:23)
[2022-11-25 09:31] LABS: CARBON DIOXIDE,CO2 25.4 mmol/L (21.0-32.0); POTASSIUM,K 3.3 mmol/L (3.5-5.1)
[2022-11-25] MEDS: Ondansetron 4 MG/2 ML SDV IVPUSH PRN (20:44)
[2022-11-26] MEDS: Morphine 2 MG/ML SYRINGE IVPUSH PRN ×6 (02:03→21:05)
[2022-11-26] MEDS: Sodium Chloride 0.9% 1,000 ML IV SCH ×2 (04:37→18:51)
[2022-11-26 07:30] LABS: CARBON DIOXIDE,CO2 23.7 mmol/L (21.0-32.0); POTASSIUM,K 3.2 mmol/L (3.5-5.1)
[2022-11-26] MEDS: Gabapentin 300 MG Cap PO SCH ×2 (09:35→20:11)
[2022-11-26] MEDS: Omeprazole 20 MG Cap.CR PO SCH (09:35)
[2022-11-26] MEDS: Thiamine 100 MG Tab PO SCH (09:35)
[2022-11-26] MEDS: Folic Acid 1 MG Tab PO SCH (09:35)
[2022-11-26] MEDS ORDERED: Potassium Phosphates 30 MMOLE in Sodium Chloride 0.9% 1,000 ML IV SCH (10:45)
[2022-11-26] MEDS: Ondansetron 4 MG/2 ML SDV IVPUSH PRN (17:46)
[2022-11-27] MEDS: Morphine 2 MG/ML SYRINGE IVPUSH PRN ×7 (00:44→20:02)
[2022-11-27] MEDS: Sodium Chloride 0.9% 1,000 ML IV SCH (03:59)
[2022-11-27] MEDS: Omeprazole 20 MG Cap.CR PO SCH (08:12)
[2022-11-27] MEDS: Folic Acid 1 MG Tab PO SCH (08:13)
[2022-11-27] MEDS: Thiamine 100 MG Tab PO SCH (08:13)
[2022-11-27] MEDS: Gabapentin 300 MG Cap PO SCH ×2 (08:13→20:02)
[2022-11-27 08:39] LABS: CARBON DIOXIDE,CO2 26.3 mmol/L (21.0-32.0); POTASSIUM,K 3.2 mmol/L (3.5-5.1)
[2022-11-27] MEDS ORDERED: Polyethylene Glycol 3350 Powder 17 GM Packet PO ONE (09:25)
[2022-11-27] MEDS: MAGNESIUM SULFATE IV SCH ×2 (10:15→15:27)
[2022-11-27] MEDS: POTASSIUM PHOSPHATES IV SCH ×2 (10:15→15:27)
[2022-11-27] MEDS: SODIUM CHLORIDE 0.9% IV SCH ×2 (10:15→15:27)
[2022-11-28] MEDS: Morphine 2 MG/ML SYRINGE IVPUSH PRN ×4 (00:21→11:35)
[2022-11-28] MEDS: Omeprazole 20 MG Cap.CR PO SCH ×2 (06:13→06:48)
[2022-11-28 06:43] LABS: CARBON DIOXIDE,CO2 24.7 mmol/L (21.0-32.0); POTASSIUM,K 3.6 mmol/L (3.5-5.1)
[2022-11-28] MEDS: Gabapentin 300 MG Cap PO SCH (08:19)
[2022-11-28] MEDS: Thiamine 100 MG Tab PO SCH (08:20)
[2022-11-28] MEDS: Folic Acid 1 MG Tab PO SCH (08:20)
== END 2022-11-28 12:30 | disposition home or self-care (01) | DRG 433 ==
LOC: MW.ED 11:55 → MW.MS 18:58 → OBSVTOIN 11-26 10:35
PROVIDERS: ADMIT Internal Medicine; ATTEND Internal Medicine
DX: K70.10 Alcoholic hepatitis without ascites (principal); F10.239 Alcohol dependence with withdrawal, unspecified; F10.288 Alcohol dependence with other alcohol-induced disorder; E80.6 Other disorders of bilirubin metabolism; E83.42 Hypomagnesemia; E83.39 Other disorders of phosphorus metabolism; F41.9 Anxiety disorder, unspecified; F32.A Depression, unspecified; F43.10 Post-traumatic stress disorder, unspecified; F17.200 Nicotine dependence, unspecified, uncomplicated; Z88.0 Allergy status to penicillin; Z88.8 Allergy status to other drugs, medicaments and biological substances; Z79.899 Other long term (current) drug therapy; Z88.1 Allergy status to other antibiotic agents
CPT/HCPCS: 36415; 51798; 74177; 74177-26; 76700; 76700-26; 80053; 81003; 82247; 82248; 83690; 83735; 84100; 84703; 85025; 85610; 86850; 86900; 86901; 93005; A9270-GY; J2270; J2405; J3475; J3490; J7030; J7120; Q9967

== ENCOUNTER 2022-12-01 16:21 | Emergency (ER) | payer MEDICAID ==
[2022-12-01 19:25] LABS: CARBON DIOXIDE,CO2 26.6 mmol/L (21.0-32.0); POTASSIUM,K 3.4 mmol/L (3.5-5.1)
[2022-12-01] MEDS ORDERED: HYDROmorphone 1 MG/ML Syringe IVPUSH ONE ×2 (19:58→22:47)
[2022-12-01] MEDS ORDERED: Furosemide 40 MG/4 ML VIAL IVPUSH ONE (22:47)
[2022-12-01] MEDS ORDERED: Potassium Chloride 20 MEQ Tab.ER PO ONE (22:47)
[2022-12-01] MEDS ORDERED: Iopamidol 755 MG/ML 500 ML Multipack Bottle IVPUSH STA (23:30)
[2022-12-02] MEDS ORDERED: cefTRIAXone 1 GM in Sodium Chloride 0.9% 50 ML IV ONE (00:58)
[2022-12-02] MEDS ORDERED: HYDROmorphone 2 MG/ML Syringe IVPUSH ONE (01:40)
== END 2022-12-02 02:18 ==
LOC: MW.ED 16:21
DX: K81.9 Cholecystitis, unspecified (principal); K72.90 Hepatic failure, unspecified without coma; Z88.0 Allergy status to penicillin; Z88.1 Allergy status to other antibiotic agents; Z88.8 Allergy status to other drugs, medicaments and biological substances; Z72.0 Tobacco use
CPT/HCPCS: 36415; 74177; 74177-26; 76700; 76700-26; 80053; 81001; 83605; 83690; 83735; 85025; 85610; 87040; 87086; 96365; 96375; 96376; 99285; 99285-25; A9270-GY; J0696; J1170; J1940; J3490; Q9967

== ENCOUNTER 2023-09-09 09:08 | Emergency (ER) | payer MEDICAID ==
[2023-09-09] MEDS ORDERED: oxyCODONE 5 MG Tab PO ONE (09:49)
== END 2023-09-09 10:21 | disposition home or self-care (01) ==
LOC: MW.ED 09:08
DX: S62.304A Unspecified fracture of fourth metacarpal bone, right hand, initial encounter for closed fracture (principal); S62.306A Unspecified fracture of fifth metacarpal bone, right hand, initial encounter for closed fracture; Z88.0 Allergy status to penicillin; Z88.1 Allergy status to other antibiotic agents; X58.XXXA Exposure to other specified factors, initial encounter
CPT/HCPCS: 99283; A9270; 99284

== ENCOUNTER 2024-01-06 08:08 | Emergency (ER) | payer MEDICAID ==
[2024-01-06 09:08] LABS: CORONAVIRUS COVID-19 NAA NEGATIVE (NEGATIVE); INFLUENZA A NAA NEGATIVE (NEGATIVE); INFLUENZA B NAA NEGATIVE (NEGATIVE); RESPIRATORY SYNCYTIAL VIR NAA NEGATIVE (NEGATIVE)
[2024-01-06] MEDS ORDERED: Diphenhydramine/Lidocaine/MagAl/Simethicone 119 ML Bottle PO STA (10:11)
[2024-01-06] MEDS: Benzonatate 100 MG Cap PO ONE (10:13)
[2024-01-06] MEDS: predniSONE 20 MG Tab PO ONE (10:14)
[2024-01-06] MEDS: Albuterol/Ipratropium 3.0-0.5 MG/3 ML Neb Soln NEB ONE (10:14)
[2024-01-06] MEDS: Diphenhydramine/Lidocaine/MagAl/Simethicone 119 ML Bottle PO STA (10:31)
== END 2024-01-06 11:14 | disposition home or self-care (01) ==
LOC: MW.ED 08:08
DX: J02.9 Acute pharyngitis, unspecified (principal); Z88.0 Allergy status to penicillin; Z88.1 Allergy status to other antibiotic agents; Z88.8 Allergy status to other drugs, medicaments and biological substances; Z79.899 Other long term (current) drug therapy; Z79.51 Long term (current) use of inhaled steroids; Z75.8 Other problems related to medical facilities and other health care
CPT/HCPCS: 0241U; 87651; 99285; A9270; 99283; J7620-GY

== ENCOUNTER 2024-01-14 23:44 | Emergency (ER) | payer MEDICAID ==
[2024-01-15] MEDS: Sodium Chloride 0.9% 10 ML Syringe FLUSH PRN (00:39)
[2024-01-15] MEDS: Sodium Chloride 0.9% 1,000 ML IV ONE (00:39)
[2024-01-15] MEDS: Sodium Chloride 0.9% 2.5 ML Syringe FLUSH PRN (00:39)
[2024-01-15 00:43] LABS: BASOPHILS ABSOLUTE AUTO 0.04 K/uL (0.00-0.20); BASOPHILS PERCENT AUTO 0.4 % (0.0-1.0); EOSINOPHILS ABSOLUTE AUTO 0.19 K/uL (0.00-0.45); HEMATOCRIT 33.2 % (37.0-47.0); HEMOGLOBIN 12.1 g/dL (12.0-16.0); IMMATURE GRAN ABSOLUTE AUTO 0.07 K/uL (0.00-0.05); IMMATURE GRAN PERCENT AUTO 0.7 % (0.0-0.4); LYMPHOCYTES ABSOLUTE AUTO 3.31 K/uL (1.00-4.80); LYMPHOCYTES PERCENT AUTO 34.4 % (24.0-44.0); MEAN CORPUSCULAR HEMOGLOBIN 34.9 pg (28.0-32.0); MEAN CORPUSCULAR HGB CONC 36.4 g/dL (32.0-36.0); MEAN CORPUSCULAR VOLUME 95.7 fL (83.0-99.0); MEAN PLATELET VOLUME 11.1 fL (9.4-12.3); MONOCYTES PERCENT AUTO 9.4 % (0.0-8.0); NEUTROPHILS PERCENT AUTO 53.1 % (41.0-71.0); PLATELET COUNT,PLT 178 K/uL (150-400); RED BLOOD CELL COUNT 3.47 M/uL (4.10-5.30); WHITE BLOOD CELL COUNT,WBC 9.61 K/uL (3.9-11.3)
[2024-01-15 01:21] LABS: A/G RATIO 1.2 (0.9-1.6); BILIRUBIN TOTAL 1.3 mg/dL (0.2-1.0); CARBON DIOXIDE,CO2 26.6 mmol/L (21.0-32.0); CREATININE 1.1 mg/dL (0.6-1.0); EST CRCL DRUG DOSING (CG) 52.69 mL/min; PROTEIN TOTAL,TP 7.4 g/dL (6.4-8.2)
[2024-01-15] MEDS: Ketorolac 30 MG/ML SDV IVPUSH ONE (01:57)
[2024-01-15] MEDS: Ondansetron 4 MG/2 ML SDV IVPUSH ONE (02:22)
[2024-01-15] MEDS: Potassium Chloride 20 MEQ Tab.ER PO ONE (02:23)
== END 2024-01-15 03:02 | disposition home or self-care (01) ==
LOC: MW.ED 23:44
DX: R10.9 Unspecified abdominal pain (principal); Z75.8 Other problems related to medical facilities and other health care; Z88.0 Allergy status to penicillin; Z88.8 Allergy status to other drugs, medicaments and biological substances; Z79.899 Other long term (current) drug therapy; Z79.890 Hormone replacement therapy; Z79.51 Long term (current) use of inhaled steroids
CPT/HCPCS: 36415; 74176; 80053; 85025; 96361; 96374; 96375; 99284; A9270; J1885; J2405; J3490; J7030

== ENCOUNTER 2024-05-19 13:14 | Emergency (ER) | payer MEDICAID ==
[2024-05-19] MEDS: Sodium Chloride 0.9% 1,000 ML IV STA ×3 (15:10→17:30)
[2024-05-19] MEDS: Ondansetron 4 MG/2 ML SDV IVPUSH STA (15:17)
[2024-05-19 15:27] LABS: APPEARANCE,URINE SLT CLOUDY; COLOR,URINE ORANGE; GLUCOSE,URINE NEGATIVE (NEGATIVE); KETONES,URINE >=80 mg/dL (NEGATIVE); LEUKOCYTE ESTERASE,URINE NEGATIVE (NEGATIVE); NITRITE,URINE POSITIVE (NEGATIVE); OCCULT BLOOD,URINE MODERATE (NEGATIVE); PROTEIN,URINE 100 mg/dL (NEGATIVE)
[2024-05-19 15:43] LABS: BILIRUBIN,URINE LARGE (NEGATIVE)
[2024-05-19 16:10] LABS: BACTERIA,URINE FEW (NEGATIVE); EPITHELIAL CELLS,URINE MANY (NONE-FEW); RBC,URINE 0-4 (0-2/HPF); YEAST,URINE OCCASIONAL
[2024-05-19] MEDS: Promethazine 25 MG/ML SDV IM STA (16:14)
[2024-05-19 16:16] LABS: BASOPHILS ABSOLUTE AUTO 0.05 K/uL (0.00-0.20); BASOPHILS PERCENT AUTO 0.5 % (0.0-1.0); EOSINOPHILS ABSOLUTE AUTO 0.01 K/uL (0.00-0.45); EOSINOPHILS PERCENT AUTO 0.1 % (0.0-6.0); HEMATOCRIT 33.7 % (37.0-47.0); IMMATURE GRAN ABSOLUTE AUTO 0.05 K/uL (0.00-0.05); IMMATURE GRAN PERCENT AUTO 0.5 % (0.0-0.4); LYMPHOCYTES ABSOLUTE AUTO 1.54 K/uL (1.00-4.80); LYMPHOCYTES PERCENT AUTO 14.2 % (24.0-44.0); MEAN CORPUSCULAR HEMOGLOBIN 35.2 pg (28.0-32.0); MEAN CORPUSCULAR HGB CONC 35.6 g/dL (32.0-36.0); MEAN CORPUSCULAR VOLUME 98.8 fL (83.0-99.0); MEAN PLATELET VOLUME 11.4 fL (9.4-12.3); MONOCYTES ABSOLUTE AUTO 0.81 K/uL (0.00-0.80); MONOCYTES PERCENT AUTO 7.5 % (0.0-8.0); NEUTROPHILS ABSOLUTE AUTO 8.38 K/uL (1.80-7.70); NEUTROPHILS PERCENT AUTO 77.2 % (41.0-71.0); PLATELET COUNT,PLT 174 K/uL (150-400); RED BLOOD CELL COUNT 3.41 M/uL (4.10-5.30); WHITE BLOOD CELL COUNT,WBC 10.84 K/uL (3.9-11.3)
[2024-05-19 16:29] LABS: INR 1.03 (0.86-1.11)
[2024-05-19 16:49] LABS: A/G RATIO 1.3 (0.9-1.6); ALBUMIN 4.9 g/dL (3.4-5.0); BILIRUBIN TOTAL 2.5 mg/dL (0.2-1.0); CALCIUM 11.4 mg/dL (8.5-10.1); CREATININE 1.6 mg/dL (0.6-1.0); EST CRCL DRUG DOSING (CG) 37.5 mL/min; POTASSIUM,K 3.7 mmol/L (3.5-5.1); PROTEIN TOTAL,TP 8.6 g/dL (6.4-8.2)
[2024-05-19] MEDS: droPERidol 5 MG/2 ML SDV IVPUSH STA ×2 (17:31→20:22)
[2024-05-19] MEDS: Morphine 4 MG/ML Syringe IVPUSH STA (17:31)
[2024-05-19] MEDS: Magnesium Sulfate/Water Premix 2 GM in Premix Bag 1 BAG IV STA (17:40)
[2024-05-19] MEDS: cefTRIAXone 1 GM in Sodium Chloride 0.9% 50 ML IV STA (17:40)
[2024-05-19] MEDS: Iopamidol 755 MG/ML 500 ML Multipack Bottle IVPUSH STA (18:06)
[2024-05-19] MEDS: traMADol 50 MG Tab PO STA (20:22)
== END 2024-05-19 20:31 | disposition home or self-care (01) ==
LOC: MW.ED 13:14
DX: A08.4 Viral intestinal infection, unspecified (principal); N17.9 Acute kidney failure, unspecified; E83.42 Hypomagnesemia; R74.01 Elevation of levels of liver transaminase levels; R17 Unspecified jaundice; Z75.8 Other problems related to medical facilities and other health care; Z88.1 Allergy status to other antibiotic agents; Z88.0 Allergy status to penicillin; Z88.8 Allergy status to other drugs, medicaments and biological substances
CPT/HCPCS: 36415; 74177; 76705; 80053; 81001; 83690; 83735; 84703; 85025; 85610; 87086; 87324; 96361; 96365; 96367; 96372; 96375; 96376; 99284; A9270; J0696; J1790; J2270; J2405; J2550; J3475; J3490; J7030; Q9967

== ENCOUNTER 2024-09-21 22:37 | Emergency (ER) | payer MEDICAID ==
[2024-09-22] MEDS: Sodium Chloride 0.9% 1,000 ML IV ONE (00:52)
[2024-09-22] MEDS: LORazepam 2 MG/ML SDV IVPUSH ONE ×2 (00:52→10:09)
[2024-09-22] MEDS ORDERED: Sodium Chloride 0.9% 20 ML SDV IV PRN (03:03)
[2024-09-22 03:17] LABS: BASOPHILS ABSOLUTE AUTO 0.02 K/uL (0.00-0.20); BASOPHILS PERCENT AUTO 0.3 % (0.0-1.0); EOSINOPHILS ABSOLUTE AUTO 0.04 K/uL (0.00-0.45); EOSINOPHILS PERCENT AUTO 0.6 % (0.0-6.0); HEMATOCRIT 41.2 % (37.0-47.0); HEMOGLOBIN 14.8 g/dL (12.0-16.0); IMMATURE GRAN ABSOLUTE AUTO 0.01 K/uL (0.00-0.05); IMMATURE GRAN PERCENT AUTO 0.1 % (0.0-0.4); LYMPHOCYTES ABSOLUTE AUTO 2.26 K/uL (1.00-4.80); LYMPHOCYTES PERCENT AUTO 32.4 % (24.0-44.0); MEAN CORPUSCULAR HEMOGLOBIN 34.2 pg (28.0-32.0); MEAN CORPUSCULAR HGB CONC 35.9 g/dL (32.0-36.0); MEAN CORPUSCULAR VOLUME 95.2 fL (83.0-99.0); MEAN PLATELET VOLUME 14.1 fL (9.4-12.3); MONOCYTES ABSOLUTE AUTO 0.66 K/uL (0.00-0.80); MONOCYTES PERCENT AUTO 9.5 % (0.0-8.0); NEUTROPHILS ABSOLUTE AUTO 3.98 K/uL (1.80-7.70); NEUTROPHILS PERCENT AUTO 57.1 % (41.0-71.0); PLATELET COUNT,PLT 152 K/uL (150-400); RED BLOOD CELL COUNT 4.33 M/uL (4.10-5.30); WHITE BLOOD CELL COUNT,WBC 6.97 K/uL (3.9-11.3)
[2024-09-22 03:25] LABS: A/G RATIO 1.2 (0.9-1.6); ACETAMINOPHEN <2.0 ug/mL; ALANINE AMINOTRANSFERASE,ALT 93 IU/L (14-63); ALBUMIN 5.2 g/dL (3.4-5.0); ALKALINE PHOSPHATASE 244 U/L (46-116); ASPARTATE AMNIOTRANSFERASE,AST 106 IU/L (15-37); BILIRUBIN TOTAL 0.8 mg/dL (0.2-1.0); BLOOD UREA NITROGEN,BUN 20 mg/dL (7.0-18.0); CALCIUM 10.1 mg/dL (8.5-10.1); CHLORIDE,CL 87 mmol/L (98-107); CREATININE 1.3 mg/dL (0.6-1.0); GLUCOSE RANDOM 105 mg/dL (74-106); POTASSIUM,K 2.7 mmol/L (3.5-5.1); PROTEIN TOTAL,TP 9.6 g/dL (6.4-8.2); SALICYLATE 3.5 mg/dL (0.0-20.0); SODIUM,NA 133 mmol/L (136-145)
[2024-09-22 03:29] LABS: ESTIMATED GFR 52 mL/min (>60); ETHANOL BLOOD MEDICAL < 3.0 mg/dL
[2024-09-22 03:42] LABS: PH,VENOUS 7.55 (7.31-7.41)
[2024-09-22 04:29] LABS: AMPHETAMINES SCREEN, URINE NEGATIVE (CUTOFF=500); BARBITURATE SCREEN,URINE NEGATIVE (CUTOFF=200); BENZODIAZEPINES SCREEN,URINE PRESUMPTIVE POSITIVE (CUTOFF=150); BUPRENORPHINE SCREEN,URINE NEGATIVE (CUTOFF=10); METHADONE SCREEN, URINE NEGATIVE (CUTOFF=200); METHAMPHETAMINES SCREEN, URINE NEGATIVE (CUTOFF=500); OXYCODONE SCREEN,URINE NEGATIVE (CUT0FF=100); PCP SCREEN,URINE NEGATIVE (CUTOFF=25); THC SCREEN,URINE 20 NG/ML PRESUMPTIVE POSITIVE (CUTOFF=50)
[2024-09-22 04:31] LABS: BACTERIA,URINE FEW (NEGATIVE); EPITHELIAL CELLS,URINE FEW (NONE-FEW); MUCUS,URINE LIGHT (NONE-MOD); RBC,URINE 0-1 (0-2/HPF); WBC,URINE 0-1 (0-5/HPF)
[2024-09-22] MEDS ORDERED: Naloxone 0.4 MG/ML SDV IVPUSH PRN (05:40)
[2024-09-22] MEDS: Potassium Chloride 20 MEQ Tab.ER PO ONE (05:53)
[2024-09-22] MEDS: Ibuprofen 600 MG Tab PO ONE (05:54)
[2024-09-22] MEDS: Acetaminophen 500 MG Tab PO ONE (05:54)
[2024-09-22] MEDS: Morphine 2 MG/ML SYRINGE IVPUSH ONE (05:55)
[2024-09-22] MEDS: Potassium Chloride 10 MEQ in Premix Bag 1 BAG IV PRN (06:08)
[2024-09-22] MEDS: Ondansetron 4 MG Tab.DIS PO ONE (07:00)
[2024-09-22 07:02] LABS: APPEARANCE,URINE CLEAR; COLOR,URINE YELLOW; PH,URINE 6.5 (5.0-8.0); PROTEIN,URINE TRACE mg/dL (NEGATIVE)
[2024-09-22 07:03] LABS: BILIRUBIN,URINE NEGATIVE (NEGATIVE); GLUCOSE,URINE NEGATIVE (NEGATIVE); KETONES,URINE 40 mg/dL (NEGATIVE); LEUKOCYTE ESTERASE,URINE NEGATIVE (NEGATIVE); NITRITE,URINE NEGATIVE (NEGATIVE); OCCULT BLOOD,URINE NEGATIVE (NEGATIVE); UROBILINOGEN,URINE 0.2 EU/dL (<2.0)
[2024-09-22] MEDS: Sodium Chloride 0.9% 10 ML Syringe FLUSH PRN (07:32)
[2024-09-22] MEDS: Sodium Chloride 0.9% 2.5 ML Syringe FLUSH PRN (07:33)
[2024-09-22] MEDS: Morphine 4 MG/ML Syringe IVPUSH ONE (10:09)
== END 2024-09-22 12:26 | disposition home or self-care (01) ==
LOC: MW.ED 22:37
DX: T44.3X1A Poisoning by other parasympatholytics [anticholinergics and antimuscarinics] and spasmolytics, accidental (unintentional), initial encounter (principal); K70.30 Alcoholic cirrhosis of liver without ascites; F10.131 Alcohol abuse with withdrawal delirium; E87.6 Hypokalemia; E86.0 Dehydration; F17.210 Nicotine dependence, cigarettes, uncomplicated; Z88.0 Allergy status to penicillin; Z88.8 Allergy status to other drugs, medicaments and biological substances; Z79.51 Long term (current) use of inhaled steroids; Z79.890 Hormone replacement therapy; Z79.899 Other long term (current) drug therapy; Y90.0 Blood alcohol level of less than 20 mg/100 ml; Z75.8 Other problems related to medical facilities and other health care
CPT/HCPCS: 36415; 80053; 80143; 80179; 80305; 80307; 81001; 82803; 84132; 84484; 85025; 93005; 96361; 96365; 96366; 96375; 96376; 99285; A9270; J2060; J2270; J3480; J7030; 93010; 99284; J3490

== ENCOUNTER 2024-11-13 20:10 | Emergency (ER) | payer MEDICAID ==
[2024-11-13] MEDS: Ondansetron 4 MG Tab.DIS PO STA (22:02)
[2024-11-13] MEDS: traMADol 50 MG Tab PO STA (22:02)
[2024-11-13] MEDS: Clindamycin HCl 150 MG Cap PO STA (22:02)
== END 2024-11-13 22:06 | disposition home or self-care (01) ==
LOC: MW.ED 20:10
DX: K04.7 Periapical abscess without sinus (principal); K02.9 Dental caries, unspecified; Z75.8 Other problems related to medical facilities and other health care; Z88.0 Allergy status to penicillin; Z88.1 Allergy status to other antibiotic agents; Z88.8 Allergy status to other drugs, medicaments and biological substances; Z79.899 Other long term (current) drug therapy; Z79.51 Long term (current) use of inhaled steroids; Z79.890 Hormone replacement therapy
CPT/HCPCS: 99282; A9270

== ENCOUNTER 2024-11-16 15:33 | Observation (INO) | payer MEDICAID ==
[2024-11-16] MEDS ORDERED: Sodium Chloride 0.9% 10 ML Syringe FLUSH PRN (16:09)
[2024-11-16] MEDS ORDERED: Sodium Chloride 0.9% 2.5 ML Syringe FLUSH PRN (16:09)
[2024-11-16 16:47] LABS: APPEARANCE,URINE SLT CLOUDY; COLOR,URINE YELLOW; GLUCOSE,URINE NEGATIVE (NEGATIVE); KETONES,URINE 40 mg/dL (NEGATIVE); LEUKOCYTE ESTERASE,URINE NEGATIVE (NEGATIVE); NITRITE,URINE NEGATIVE (NEGATIVE); OCCULT BLOOD,URINE NEGATIVE (NEGATIVE); PROTEIN,URINE 100 mg/dL (NEGATIVE); UROBILINOGEN,URINE 0.2 EU/dL (<2.0)
[2024-11-16 16:57] LABS: BILIRUBIN,URINE LARGE (NEGATIVE)
[2024-11-16 17:08] LABS: BASOPHILS ABSOLUTE AUTO 0.03 K/uL (0.00-0.20); BASOPHILS PERCENT AUTO 0.6 % (0.0-1.0); EOSINOPHILS ABSOLUTE AUTO 0.08 K/uL (0.00-0.45); EOSINOPHILS PERCENT AUTO 1.5 % (0.0-6.0); HEMATOCRIT 36.5 % (37.0-47.0); HEMOGLOBIN 13.2 g/dL (12.0-16.0); IMMATURE GRAN ABSOLUTE AUTO 0.01 K/uL (0.00-0.05); IMMATURE GRAN PERCENT AUTO 0.2 % (0.0-0.4); LYMPHOCYTES ABSOLUTE AUTO 1.68 K/uL (1.00-4.80); LYMPHOCYTES PERCENT AUTO 30.9 % (24.0-44.0); MEAN CORPUSCULAR HEMOGLOBIN 34.8 pg (28.0-32.0); MEAN CORPUSCULAR HGB CONC 36.2 g/dL (32.0-36.0); MEAN CORPUSCULAR VOLUME 96.3 fL (83.0-99.0); MEAN PLATELET VOLUME 11.8 fL (9.4-12.3); MONOCYTES ABSOLUTE AUTO 0.66 K/uL (0.00-0.80); MONOCYTES PERCENT AUTO 12.2 % (0.0-8.0); NEUTROPHILS ABSOLUTE AUTO 2.97 K/uL (1.80-7.70); NEUTROPHILS PERCENT AUTO 54.6 % (41.0-71.0); PLATELET COUNT,PLT 163 K/uL (150-400); RED BLOOD CELL COUNT 3.79 M/uL (4.10-5.30); WHITE BLOOD CELL COUNT,WBC 5.43 K/uL (3.9-11.3)
[2024-11-16 17:19] LABS: BACTERIA,URINE FEW (NEGATIVE); EPITHELIAL CELLS,URINE MANY (NONE-FEW); RBC,URINE 0-2 (0-2/HPF); YEAST,URINE OCCASIONAL
[2024-11-16 17:29] LABS: A/G RATIO 1.2 (0.9-1.6); ALBUMIN 4.8 g/dL (3.4-5.0); BILIRUBIN TOTAL 1.5 mg/dL (0.2-1.0); CALCIUM 9.9 mg/dL (8.5-10.1); CARBON DIOXIDE,CO2 27.4 mmol/L (21.0-32.0); CREATININE 2.3 mg/dL (0.6-1.0); EST CRCL DRUG DOSING (CG) 24.94 mL/min; MAGNESIUM 1.2 mg/dL (1.8-2.4); PROTEIN TOTAL,TP 8.7 g/dL (6.4-8.2)
[2024-11-16 17:31] LABS: POTASSIUM,K 2.2 mmol/L (3.5-5.1)
[2024-11-16] MEDS: Magnesium Sulf/Wat 4 GM/100 mL 4 GM in Premix Bag 1 BAG IV ONE (17:45)
[2024-11-16] MEDS: Lactated Ringers 1,000 ML IV ONE (17:45)
[2024-11-16] MEDS: Potassium Chloride 20 MEQ Tab.ER PO ONE (17:45)
[2024-11-16] MEDS: Ondansetron 4 MG/2 ML SDV IVPUSH STA (17:51)
[2024-11-16] MEDS: Potassium Chloride 10 MEQ in Premix Bag 1 BAG IV SCH (18:18)
[2024-11-16] MEDS: Morphine 4 MG/ML Syringe IVPUSH ONE (18:18)
[2024-11-16] MEDS: Sodium Chloride 0.9% 500 ML IV STA (18:30)
[2024-11-16] MEDS ORDERED: Potassium Chloride 10 MEQ in Premix Bag 1 BAG IV SCH (19:40)
[2024-11-16] MEDS: Pantoprazole 40 MG in Sodium Chloride 0.9% 10 ML IVPUSH SCH (19:59)
[2024-11-16] MEDS: Enoxaparin 40 MG/0.4 ML Syringe SUBCUT SCH (19:59)
[2024-11-16 20:40] LABS: CALCIUM 9.4 mg/dL (8.5-10.1); CARBON DIOXIDE,CO2 26.8 mmol/L (21.0-32.0); CREATININE 1.8 mg/dL (0.6-1.0); EST CRCL DRUG DOSING (CG) 31.87 mL/min; POTASSIUM,K 2.7 mmol/L (3.5-5.1)
[2024-11-16] MEDS: Melatonin 3 MG Tab PO SCH (21:02)
[2024-11-16] MEDS: Ondansetron 4 MG/2 ML SDV IVPUSH PRN (22:40)
[2024-11-16] MEDS: Acetaminophen 325 MG Tab PO ONE (22:49)
[2024-11-17] MEDS: Potassium Chloride 10 MEQ in Premix Bag 1 BAG IV SCH (00:07)
[2024-11-17 05:56] LABS: BASOPHILS ABSOLUTE AUTO 0.02 K/uL (0.00-0.20); BASOPHILS PERCENT AUTO 0.5 % (0.0-1.0); EOSINOPHILS ABSOLUTE AUTO 0.09 K/uL (0.00-0.45); EOSINOPHILS PERCENT AUTO 2.2 % (0.0-6.0); HEMATOCRIT 30.6 % (37.0-47.0); HEMOGLOBIN 10.7 g/dL (12.0-16.0); IMMATURE GRAN ABSOLUTE AUTO 0.01 K/uL (0.00-0.05); IMMATURE GRAN PERCENT AUTO 0.2 % (0.0-0.4); LYMPHOCYTES ABSOLUTE AUTO 1.79 K/uL (1.00-4.80); LYMPHOCYTES PERCENT AUTO 44.6 % (24.0-44.0); MEAN CORPUSCULAR HEMOGLOBIN 34.3 pg (28.0-32.0); MEAN CORPUSCULAR VOLUME 98.1 fL (83.0-99.0); MEAN PLATELET VOLUME 11.7 fL (9.4-12.3); MONOCYTES ABSOLUTE AUTO 0.44 K/uL (0.00-0.80); NEUTROPHILS ABSOLUTE AUTO 1.66 K/uL (1.80-7.70); NEUTROPHILS PERCENT AUTO 41.5 % (41.0-71.0); PLATELET COUNT,PLT 123 K/uL (150-400); RED BLOOD CELL COUNT 3.12 M/uL (4.10-5.30); WHITE BLOOD CELL COUNT,WBC 4.01 K/uL (3.9-11.3)
[2024-11-17 06:19] LABS: A/G RATIO 1.3 (0.9-1.6); ALBUMIN 3.8 g/dL (3.4-5.0); BILIRUBIN TOTAL 1.3 mg/dL (0.2-1.0); CARBON DIOXIDE,CO2 25.4 mmol/L (21.0-32.0); CREATININE 1.3 mg/dL (0.6-1.0); EST CRCL DRUG DOSING (CG) 44.13 mL/min; PHOSPHORUS 1.4 mg/dL (2.6-4.7); POTASSIUM,K 3.7 mmol/L (3.5-5.1); PROTEIN TOTAL,TP 6.8 g/dL (6.4-8.2)
[2024-11-17] MEDS: Thiamine 200 MG/2 ML MDV IVPUSH SCH (09:29)
[2024-11-17] MEDS: Levothyroxine 50 MCG Tab PO SCH (09:31)
[2024-11-17] MEDS: Polyethylene Glycol 3350 Powder 17 GM Packet PO SCH (09:31)
[2024-11-17] MEDS: Folic Acid 1 MG/0.2 ML UD Syringe IV SCH (10:17)
[2024-11-17 10:35] LABS: PERCENT FE SATURATION 47.46 % (20-55)
[2024-11-17] MEDS: traMADol 50 MG Tab PO PRN (11:04)
[2024-11-17] MEDS: Spironolactone 25 MG Tab PO SCH (11:04)
[2024-11-17] MEDS: Potassium Phosphates 20 MMOLE in Sodium Chloride 0.9% 250 ML IV ONE (11:06)
[2024-11-17] MEDS: Gabapentin 300 MG Cap PO SCH (13:44)
[2024-11-17] MEDS: Propranolol 10 MG Tab PO SCH (13:59)
== END 2024-11-17 16:50 | disposition home or self-care (01) ==
LOC: MW.ED 15:33 → MW.MS 18:22
PROVIDERS: ADMIT Internal Medicine; ATTEND Internal Medicine
DX: N17.9 Acute kidney failure, unspecified (principal); I12.9 Hypertensive chronic kidney disease with stage 1 through stage 4 chronic kidney disease, or unspecified chronic kidney disease; N18.9 Chronic kidney disease, unspecified; E03.9 Hypothyroidism, unspecified; E87.1 Hypo-osmolality and hyponatremia; E83.42 Hypomagnesemia; E87.6 Hypokalemia; K70.30 Alcoholic cirrhosis of liver without ascites; F17.210 Nicotine dependence, cigarettes, uncomplicated; Z88.1 Allergy status to other antibiotic agents; Z88.8 Allergy status to other drugs, medicaments and biological substances; Z88.0 Allergy status to penicillin; Z79.899 Other long term (current) drug therapy; Z79.890 Hormone replacement therapy; E87.8 Other disorders of electrolyte and fluid balance, not elsewhere classified; R18.8 Other ascites
CPT/HCPCS: 36415; 80048; 80053; 80061; 81001; 82306; 82550; 83550; 83690; 83735; 84100; 84443; 85025; 93005; 93010; 96365; 96366; 96367; 96368; 96372; 96375; 96376; 99222; 99239; 99285; 99285-25; A9270-GY; G0378; J1650; J2270; J2405; J2470; J3411; J3475; J3480; J3490; J7040; J7120

== ENCOUNTER 2025-02-09 17:48 | Emergency (ER) | payer MEDICAID ==
[2025-02-09] MEDS: Sodium Chloride 0.9% 1,000 ML IV ONE (18:47)
[2025-02-09] MEDS: Morphine 4 MG/ML Syringe IVPUSH ONE ×2 (18:47→21:01)
[2025-02-09] MEDS: Ondansetron 4 MG/2 ML SDV IVPUSH ONE (18:47)
[2025-02-09 18:49] LABS: BASOPHILS ABSOLUTE AUTO 0.04 K/uL (0.00-0.20); BASOPHILS PERCENT AUTO 0.5 % (0.0-1.0); EOSINOPHILS ABSOLUTE AUTO 0.12 K/uL (0.00-0.45); EOSINOPHILS PERCENT AUTO 1.6 % (0.0-6.0); HEMATOCRIT 34.8 % (37.0-47.0); HEMOGLOBIN 12.7 g/dL (12.0-16.0); IMMATURE GRAN ABSOLUTE AUTO 0.03 K/uL (0.00-0.05); IMMATURE GRAN PERCENT AUTO 0.4 % (0.0-0.4); LYMPHOCYTES ABSOLUTE AUTO 2.05 K/uL (1.00-4.80); LYMPHOCYTES PERCENT AUTO 26.6 % (24.0-44.0); MEAN CORPUSCULAR HEMOGLOBIN 35.4 pg (28.0-32.0); MEAN CORPUSCULAR HGB CONC 36.5 g/dL (32.0-36.0); MEAN CORPUSCULAR VOLUME 96.9 fL (83.0-99.0); MONOCYTES ABSOLUTE AUTO 0.66 K/uL (0.00-0.80); MONOCYTES PERCENT AUTO 8.6 % (0.0-8.0); NEUTROPHILS ABSOLUTE AUTO 4.81 K/uL (1.80-7.70); NEUTROPHILS PERCENT AUTO 62.3 % (41.0-71.0); PLATELET COUNT,PLT 194 K/uL (150-400); RED BLOOD CELL COUNT 3.59 M/uL (4.10-5.30); WHITE BLOOD CELL COUNT,WBC 7.71 K/uL (3.9-11.3)
[2025-02-09 19:12] LABS: A/G RATIO 1.3 (0.9-1.6); ALBUMIN 4.7 g/dL (3.4-5.0); BILIRUBIN TOTAL 0.8 mg/dL (0.2-1.0); CALCIUM 9.7 mg/dL (8.5-10.1); CREATININE 1.4 mg/dL (0.6-1.0); EST CRCL DRUG DOSING (CG) 40.98 mL/min; MAGNESIUM 1.3 mg/dL (1.8-2.4); POTASSIUM,K 3.4 mmol/L (3.5-5.1); PROTEIN TOTAL,TP 8.4 g/dL (6.4-8.2)
[2025-02-09] MEDS: Magnesium Sulfate 2 GM/50 mL 2 GM in Premix Bag 1 BAG IV ONE (20:41)
[2025-02-09] MEDS: Iopamidol 755 MG/ML 500 ML Multipack Bottle IVPUSH ONE (21:07)
[2025-02-09] MEDS: Dicyclomine 10 MG Cap PO ONE (22:16)
[2025-02-09 22:20] LABS: APPEARANCE,URINE CLEAR; BILIRUBIN,URINE NEGATIVE (NEGATIVE); COLOR,URINE YELLOW; GLUCOSE,URINE NEGATIVE (NEGATIVE); KETONES,URINE TRACE mg/dL (NEGATIVE); LEUKOCYTE ESTERASE,URINE NEGATIVE (NEGATIVE); NITRITE,URINE NEGATIVE (NEGATIVE); OCCULT BLOOD,URINE NEGATIVE (NEGATIVE); PROTEIN,URINE NEGATIVE (NEGATIVE); UROBILINOGEN,URINE 0.2 EU/dL (<2.0)
== END 2025-02-09 23:14 | disposition home or self-care (01) ==
LOC: MW.ED 17:48
DX: K76.0 Fatty (change of) liver, not elsewhere classified (principal); E87.6 Hypokalemia; E83.42 Hypomagnesemia; E86.0 Dehydration; R74.8 Abnormal levels of other serum enzymes; Z75.3 Unavailability and inaccessibility of health-care facilities; Z88.0 Allergy status to penicillin; Z88.1 Allergy status to other antibiotic agents; Z88.8 Allergy status to other drugs, medicaments and biological substances; Z79.899 Other long term (current) drug therapy; R89.1 Abnormal level of hormones in specimens from other organs, systems and tissues
CPT/HCPCS: 36415; 74177; 76700; 80053; 81003; 83690; 83735; 84702; 84703; 85025; 96361; 96365; 96375; 96376; 99284; A9270; J2270; J2405; J3475; J7030; Q9967; 99283

== ENCOUNTER 2025-07-12 19:09 | Emergency (ER) | payer MEDICAID ==
[2025-07-12 19:42] LABS: BASOPHILS ABSOLUTE AUTO 0.04 K/uL (0.00-0.20); BASOPHILS PERCENT AUTO 0.4 % (0.0-1.0); EOSINOPHILS ABSOLUTE AUTO 0.24 K/uL (0.00-0.45); EOSINOPHILS PERCENT AUTO 2.5 % (0.0-6.0); IMMATURE GRAN ABSOLUTE AUTO 0.04 K/uL (0.00-0.05); IMMATURE GRAN PERCENT AUTO 0.4 % (0.0-0.4); LYMPHOCYTES ABSOLUTE AUTO 2.00 K/uL (1.00-4.80); LYMPHOCYTES PERCENT AUTO 21.2 % (24.0-44.0); MEAN PLATELET VOLUME 12.4 fL (9.4-12.3); MONOCYTES ABSOLUTE AUTO 0.83 K/uL (0.00-0.80); MONOCYTES PERCENT AUTO 8.8 % (0.0-8.0); NEUTROPHILS ABSOLUTE AUTO 6.28 K/uL (1.80-7.70); NEUTROPHILS PERCENT AUTO 66.7 % (41.0-71.0); NRBC ABSOLUTE 0.00 K/uL (0.00-0.02); NRBC PERCENT 0.0 /100WBC (0.0-0.2); PLATELET COUNT,PLT 163 K/uL (150-400); RED BLOOD CELL COUNT 3.89 M/uL (4.10-5.30); WHITE BLOOD CELL COUNT,WBC 9.43 K/uL (3.9-11.3)
[2025-07-12 20:11] LABS: A/G RATIO 1.1 (0.9-1.6); ALANINE AMINOTRANSFERASE,ALT 45 IU/L (14-63); ASPARTATE AMNIOTRANSFERASE,AST 56 IU/L (15-37); BILIRUBIN TOTAL 0.5 mg/dL (0.2-1.0); BLOOD UREA NITROGEN,BUN 18 mg/dL (7.0-18.0); CARBON DIOXIDE,CO2 23.8 mmol/L (21.0-32.0); CHLORIDE,CL 92 mmol/L (98-107); CREATININE 1.2 mg/dL (0.6-1.0); EST CRCL DRUG DOSING (CG) 47.32 mL/min; GLUCOSE RANDOM 110 mg/dL (74-106); POTASSIUM,K 2.5 mmol/L (3.5-5.1); PRO B-TYPE NATRIUR PEPT,BNPPRO 57 pg/mL (0-125); PROTEIN TOTAL,TP 8.5 g/dL (6.4-8.2); SODIUM,NA 132 mmol/L (136-145)
[2025-07-12 20:17] LABS: ESTIMATED GFR 57 mL/min (>60)
[2025-07-12] MEDS: Magnesium Sulfate 2 GM/50 mL 2 GM in Premix Bag 1 BAG IV ONE (20:48)
[2025-07-12] MEDS: Potassium Chloride 20 MEQ Tab.ER PO ONE ×2 (20:48)
[2025-07-12] MEDS: Potassium Chloride 20 MEQ in Premix Bag 1 BAG IV ONE (21:08)
== END 2025-07-12 23:15 | disposition home or self-care (01) ==
LOC: MW.ED 19:09
DX: M94.0 Chondrocostal junction syndrome [Tietze] (principal); E87.6 Hypokalemia; E83.42 Hypomagnesemia; F17.200 Nicotine dependence, unspecified, uncomplicated; Z90.49 Acquired absence of other specified parts of digestive tract; Z88.0 Allergy status to penicillin; Z88.8 Allergy status to other drugs, medicaments and biological substances; Z79.899 Other long term (current) drug therapy
CPT/HCPCS: 36415; 71045; 80053; 83690; 83735; 83880; 84484; 85025; 85379; 93005; 96365; 96366; 96368; 99285; A9270; J3475; J3480; J7030; 99283